=== PATIENT | female | born 1975 | race African-American/Black ===

== ENCOUNTER 2017-07-27 01:45 | Emergency (ER) | payer SELFPAY ==
[2017-07-27 01:58] VITALS: BP 110/71; BMI 28.6
--- NOTE | 2017-07-27 02:32 | DR.GENAD ---
HPI - PCP Primary Care Physician: NFD - Complaint/Symptoms Chief Complaint Doctors Comments: Patient presents with complaint of elevated blood pressure today, has been taking aleve w/o relief. Denies n/v/d/ She wears glasses; last changed last year. Blood pressure wnl. Chief Complaint:: BLOOD PRESSURE BEEN RUNNING HIGH FOR ABOUT A WEEK LAST BLOOD PRESSURE TAKEN AT 6PM WAS 158/122. HAS HEADACHE THAT FEELS LIKE PINS STICKING IN LEFT SIDE OF HEAD FACE AREA AND DOWN LEFT SIDE OF NECK. HAVING SOME BLURRED VISION ON AND OFF. 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 - Family History History of Family Medical Conditions: Yes Family Medical History: Diabetes Mellitus, Cancer, [place], Coronary Artery Disease, Hypertension - Social History Does patient currently use any type of tobacco product: No Have you used tobacco products in the last 12 months: No Type of Tobacco Use: None Does any household member use tobacco: No Alcohol Use: Rarely Do you use any recreational Drugs:: No Lives With: Family Lives Where: Home - infectious screening In the last 2 months have you had wt loss of >10#?: NO Have you had fever, night sweats or hemotysis?: No Have you traveled outside the country in the last 6 months?: No Isolation: Standard ROS - Review of Systems Constitutional: No Symptoms Reported Eyes: No Symptoms Reported ENTM: No Symptoms Reported Respiratoy: No Symptoms Reported Cardiovascular: No Symptoms Reported Gastrointestinal/Abdominal: No Symptoms Reported Genitourinary: No Symptoms Reported Neurological: Headache Musculoskeletal: No Symptoms Reported Integumentary: No Symptoms Reported Hematologic/Lymphatic: No Symptoms Reported Endocrine: No Symptoms Reported Psychiatric: No Symptoms Reported All Other Systems: Reviewed and Negative PE - Vital Signs Vitals: Temperature 99.3 F Pulse Rate 76 Respiratory Rate 16 Blood Pressure 110/71 O2 Sat by Pulse Oximetry 98 - General Limitations: No Limitations General Appearance: Alert, In No Apparent Distress - Head Head Exam: Normal Inspection, Atraumatic - Eyes Eye exam: Normal Appearance, PERRL, EOMI - ENT ENT Exam: Normal Exam External Ear Exam: Normal External Inspection TM/Canal Exam: Bilateral Normal Nose Exam: Normal Nose Exam Mouth Exam: Normal Inspection Throat Exam: Normal Inspection - Neck Neck Exam: Normal Inspection, Full ROM - Chest Chest Inspection: Normal Inspection, Symmetric Chest Wall Rise - Respiratory Respiratory Exam: Normal Lung Sounds Bilat Respiratory Exam: Bilateral Clear to Auscultation - Cardiovascular Cardiovascular Exam: Regular Rate, Normal Rhythm - Abdominal Exam Abdominal Exam: Normal Inspection, Normal Bowel Sounds Abdominal Tenderness: negative: RUQ, RLQ, LUQ, LLQ, Epigastrium, Suprapubic, Diffuse, Mild, Moderate, Severe, Other - Extremities Extremities Exam: Normal Inspection, Full ROM - Back Back Exam: Normal Inspection, Full ROM - Neurologic Neurological Exam: Alert, Oriented X3, CN II-XII Intact - Psychiatric Psychiatric Exam: Normal Affect - Skin Skin Exam: Warm, Dry, Intact - Diagnosis Discharge Problem: Headache Qualifiers: Headache type: unspecified Headache chronicity pattern: episodic headache Intractability: not intractable Qualified Code(s): R51 - Headache - Discharge Plan Condition: Stable - Follow ups/Referrals Follow ups/Referrals: NFD,None [Primary Care Provider] - 3 days - Instructions
== END 2017-07-27 02:50 | disposition home or self-care (01) ==
LOC: ER 01:45
DX: R51 Headache (principal)
CPT/HCPCS: 99281; 99282

== ENCOUNTER 2017-10-15 20:58 | Emergency (ER) | payer OTHER ==
[2017-10-15 21:09] VITALS: BP 119/80; BMI 28.3
[2017-10-15] MEDS ORDERED: BACTRIM DS TAB PO ONE ×3 (23:12→23:18)
[2017-10-15] MEDS ORDERED: MOTRIN TAB 800 MG PO ONE ×2 (23:13→23:17)
--- NOTE | 2017-10-15 23:16 | DR.GENAD ---
HPI - PCP Primary Care Physician: NFD - HPI Comment HPI Comment: GETTING WORSE. NO FEVER. SHE DENIES INSECT BITE BUT FEEL THIS MAY BE A BUG BITE. NO DRAINAGE. - Complaint/Symptoms Chief Complaint Doctors Comments: INCREASING PAIN LEFT GROIN AREA TIMES 4 DAYS. Chief Complaint:: BIT BY SOMETHING BUT IS UNSURE OF WHAT, ISN'T SURE EXACTLY WHEN IT HAPPENED, BELIEVES SOMETIME THIS WEEKEND. 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 Past Surgical History Comment: PATIAL HYSTERECTOMY 1998 - Family History History of Family Medical Conditions: No Family Medical History: Diabetes Mellitus, Cancer, [place], Coronary Artery Disease, Hypertension - Social History Does patient currently use any type of tobacco product: No Have you used tobacco products in the last 12 months: No Type of Tobacco Use: None Does any household member use tobacco: No Alcohol Use: Occasionally Do you use any recreational Drugs:: No Lives With: Family Lives Where: Home - infectious screening In the last 2 months have you had wt loss of >10#?: NO Have you had fever, night sweats or hemotysis?: No Have you traveled outside the country in the last 6 months?: No Isolation: Standard ROS - Review of Systems Constitutional: negative: Chills, Fever, Weakness, Fatigue Eyes: No Symptoms Reported ENTM: No Symptoms Reported Respiratoy: No Symptoms Reported Gastrointestinal/Abdominal: No Symptoms Reported Genitourinary: Pain (PAIN AND SWELLING LEFT GROIN AREA.) Neurological: No Symptoms Reported Musculoskeletal: No Symptoms Reported Integumentary: Lumps (LT GROIN AREA.) Hematologic/Lymphatic: No Symptoms Reported Endocrine: No Symptoms Reported All Other Systems: Reviewed and Negative PE - Vital Signs Vitals: Temperature 97.5 F Pulse Rate 76 Respiratory Rate 18 Blood Pressure 119/80 O2 Sat by Pulse Oximetry 100 - General Limitations: No Limitations General Appearance: Alert - Head Head Exam: Normal Inspection - Eyes Eye exam: Normal Appearance - ENT ENT Exam: Normal External Ear Exam External Ear Exam: Normal External Inspection TM/Canal Exam: Bilateral Normal Nose Exam: Normal Nose Exam Mouth Exam: Normal Inspection Throat Exam: Normal Inspection - Neck Neck Exam: Normal Inspection - Chest Chest Inspection: Symmetric Chest Wall Rise - Respiratory Respiratory Exam: Normal Lung Sounds Bilat Respiratory Exam: Bilateral Clear to Auscultation - Cardiovascular Cardiovascular Exam: Regular Rate, Normal Rhythm, Normal Heart Sounds - Abdominal Exam Abdominal Exam: Normal Bowel Sounds, Soft. negative: Tenderness - Extremities Extremities Exam: Normal Inspection - Back Back Exam: Normal Inspection - Neurologic Neurological Exam: Alert, Oriented X3 - Psychiatric Psychiatric Exam: Normal Affect, Normal Mood - Skin Skin Exam: Normal Color MDM - Differential Diagnosis Differential Diagnosis: LEFT GROIN PAIN, ABSCES LT GROIN, CELLULITIS LT GROIN. Course - Treatment Treatment: SEE ORDERS - Education/Counseling Education/Counseling: Patient, Education Educated On: Diagnosis, Needs for Follow Up - Diagnosis Discharge Problem: Cellulitis, Abscess - Discharge Plan Disposition: 01 HOME, SELF-CARE Condition: Stable Prescriptions: Ibuprofen [MOTRIN TAB 800 MG *] 800 mg PO Q8H PRN #30 tab PRN Reason: Pain/Inflammation Sulfamethoxazole-Trimethoprim [BACTRIM DS TAB 800/160 MG *] 1 tab PO BID #20 tab - Follow ups/Referrals Follow ups/Referrals: NFD,None [Primary Care Provider] - 3 days - Instructions Instructions: Skin Abscess, Cellulitis, Adult, [id number] Additional Instructions: RETURN TO ED IF WORSE.
== END 2017-10-15 23:27 | disposition home or self-care (01) ==
LOC: ER 21:14
DX: L03.314 Cellulitis of groin (principal); L02.214 Cutaneous abscess of groin
CPT/HCPCS: 99282